=== PATIENT | male | born 1955 | race Caucasian/White ===

== ENCOUNTER → 2017-10-05 | Outpatient (CLI) | payer MEDICAID ==
[~2017-10-05] MED LIST: ASPI-621 PO; ATOR80TA PO; CLOP75TA52 PO; DOCU-131 PO; FURO-93 PO; GADOBUTROL 10 MMOL/10 ML PFS ONE; HYDR-3245 PO; LISI5TAB7 PO; METO25TA35 PO; POTA10TA5 PO
== END | disposition home or self-care (01) ==
LOC: CFH 15:05
PROVIDERS: ATTEND Family Medicine
DX: D49.2 Neoplasm of unspecified behavior of bone, soft tissue, and skin (principal); M25.519 Pain in unspecified shoulder
CPT/HCPCS: 73220; A9585